=== PATIENT | male | born 1965 | race American Indian/Alaskan Native ===

== ENCOUNTER 2016-10-21 04:25 | Emergency (ER) | payer MEDICARE, OTHER ==
[2016-10-21 04:40] VITALS: BP 119/89
[2016-10-21 05:35] LABS: Blood Urea Nitrogen 3 mg/dL (9-20); Calcium 8.6 mg/dL (8.4-10.2); Carbon Dioxide 27 mmol/L (22-30); Chloride 101.6 mmol/L (98-107); Glucose 272 mg/dL (75-100); Potassium 4.6 mmol/L (3.6-5.0); Sodium 141 mmol/L (137-145)
[2016-10-21 05:40] LABS: Basophils % (Auto) 0.9 % (0.0-1.8); Eosinophils % (Auto) 2.6 % (0.0-4.3); Hematocrit 39.3 % (35.5-45.6); Mean Corpuscular HGB Conc 33 % (32-34); Mean Corpuscular Hemoglobin 29 pg (28-32); Mean Corpuscular Volume 89 fl (84-94); Platelet Count 402 K/mm3 (140-440); Red Blood Count 4.44 M/mm3 (3.65-5.03); Red Cell Distribution Width 15.9 % (13.2-15.2); White Blood Count 5.5 K/mm3 (4.5-11.0)
[2016-10-21 05:50] LABS: Anion Gap 17 mmol/L
== END 2016-10-21 12:28 | disposition left against medical advice (07) ==
LOC: ED 04:25 → EEVIPCON 04:25 → ED 12:28
DX: R45.851 Suicidal ideations (principal); Z53.21 Procedure and treatment not carried out due to patient leaving prior to being seen by health care provider
CPT/HCPCS: 36415; 80048; 85025; G0480; 80320

== ENCOUNTER 2016-10-22 09:19 | Emergency (ER) | payer SELFPAY ==
[2016-10-22 10:05] VITALS: BP 139/98
--- NOTE | 2016-10-22 10:08 | Emergency Department Report ---
Stated Complaint: MH Time Seen by Provider: 10/22/16 10:05 - HPI History of Present Illness: Patient requesting medication refill on prescriptions. He was brought to the ED by Fidencio Magdalene SMITH for mental health evaluation - ROS Review of Systems: all other systems are unremarkable except for documentation in HPI - Exam Physical Exam: Gen: well developed and nourished, NAD Psych: rambling MSE screening note: Focused history and physical exam performed. Due to findings the following was ordered: laboratory studies and Mental Health Evaluation ordered ED Disposition for MSE Condition: Stable
[2016-10-22 10:43] LABS: Basophils % (Auto) 0.3 % (0.0-1.8); Eosinophils % (Auto) 1.5 % (0.0-4.3); Hemoglobin 11.9 gm/dl (11.8-15.2); Mean Corpuscular HGB Conc 33 % (32-34); Mean Corpuscular Hemoglobin 29 pg (28-32); Mean Corpuscular Volume 88 fl (84-94); Platelet Count 332 K/mm3 (140-440); Red Blood Count 4.08 M/mm3 (3.65-5.03); Red Cell Distribution Width 16.4 % (13.2-15.2)
[2016-10-22 11:05] LABS: Alanine Aminotransferase 10 units/L (7-56); Albumin 3.9 g/dL (3.9-5); Albumin/Globulin Ratio 1.2 %; Alkaline Phosphatase 70 units/L (35-129); Anion Gap 15 mmol/L; BUN/Creatinine Ratio 11.25; Bilirubin,Total 0.2 mg/dL (0.1-1.2); Blood Urea Nitrogen 9 mg/dL (9-20); Calcium 9.3 mg/dL (8.4-10.2); Carbon Dioxide 29 mmol/L (22-30); Chloride 103.8 mmol/L (98-107); Glucose 193 mg/dL (75-100); Potassium 4.3 mmol/L (3.6-5.0); Sodium 143 mmol/L (137-145); Total Protein 7.2 g/dL (6.3-8.2)
[2016-10-22 11:31] LABS: Salicylate < 0.3 mg/dL (2.8-20.0); Valproate 102.6 ug/mL (50-100)
--- NOTE | 2016-10-23 19:16 | ED Elopement Review ---
ED Pt Elopement review - Results review Lab results: Laboratory Tests 10/22/16 10/22/16 10/22/16 10:27 10:27 10:27 WBC 8.0 RBC 4.08 Hgb 11.9 Hct 36.0 MCV 88 MCH 29 MCHC 33 RDW 16.4 H Plt Count 332 Lymph % (Auto) 29.5 [place] % (Auto) 8.2 H Eos % (Auto) 1.5 Baso % (Auto) 0.3 Lymph # 2.4 [place]ade # 0.7 Eos # 0.1 Baso # 0.0 Seg Neutrophils % 60.5 Seg Neutrophils # 4.8 Carbon Dioxide 29 BUN 9 Creatinine 0.8 Estimated GFR > 60 BUN/Creatinine Ratio 11.25 Glucose 193 H Calcium 9.3 Total Bilirubin 0.2 AST 14 ALT 10 Alkaline Phosphatase 70 Total Protein 7.2 Albumin 3.9 Albumin/Globulin Ratio 1.2 Salicylates < 0.3 L Acetaminophen Valproic Acid 102.6 H Plasma/Serum Alcohol 10/22/16 10/22/16 10:27 10:27 WBC RBC Hgb Hct MCV MCH MCHC RDW Plt Count Lymph % (Auto) [place] % (Auto) Eos % (Auto) Baso % (Auto) Lymph # Meade # Eos # Baso # Seg Neutrophils % Seg Neutrophils # Carbon Dioxide BUN Creatinine Estimated GFR BUN/Creatinine Ratio Glucose Calcium Total Bilirubin AST ALT Alkaline Phosphatase Total Protein Albumin Albumin/Globulin Ratio Salicylates Acetaminophen < 15.0 Valproic Acid Plasma/Serum Alcohol < 0.01 - Call Back decision Pt Call Back Decision: Call pt to return to ED JUANA (patient here twice in 2 days 1 nursing note states he is suicidal there is no mention of him being suicidal in the screening MSE exam.)
== END 2016-10-22 11:15 | disposition left against medical advice (07) ==
LOC: EEVIPCON 09:19 → ED 09:19
DX: Z76.0 Encounter for issue of repeat prescription (principal); Z53.21 Procedure and treatment not carried out due to patient leaving prior to being seen by health care provider
CPT/HCPCS: 36415; 80053; 80164; 85025; G0480; 80320

== ENCOUNTER 2021-05-10 18:53 | Emergency (ER) | payer MEDICARE ==
[2021-05-10 19:36] LABS: Basophils # (Auto) 0.1 K/mm3 (0.0-0.1); Eosinophils # (Auto) 0.1 K/mm3 (0.0-0.4); Eosinophils % (Auto) 0.7 % (0.0-4.3); Hematocrit 37.9 % (35.5-45.6); Hemoglobin 12.8 gm/dl (11.8-15.2); Lymphocytes # (Auto) 0.9 K/mm3 (1.2-5.4); Lymphocytes % (Auto) 12.2 % (13.4-35.0); Mean Corpuscular HGB Conc 34 % (32-34); Mean Corpuscular Volume 87 fl (84-94); Monocytes # (Auto) 0.5 K/mm3 (0.0-0.8); Monocytes % (Auto) 7.1 % (0.0-7.3); Platelet Count 312 K/mm3 (140-440); Red Blood Count 4.36 M/mm3 (3.65-5.03); Red Cell Distribution Width 16.6 % (13.2-15.2)
[2021-05-10 19:49] LABS: BUN/Creatinine Ratio 20; Blood Urea Nitrogen 16 mg/dL (9-20); Calcium 9.8 mg/dL (8.4-10.2); Hemolysis Index 5
[2021-05-10 20:20] LABS: Amphetamine Screen,Urine Negative; Benzodiazepines Screen,Urine Negative; Cannabinoid Screen,Urine Negative; Cocaine Screen,Urine Negative; Methadone Screen,Urine Negative; Opiate Screen,Urine Negative
--- NOTE | 2021-05-10 20:31 | Emergency Department Report ---
HPI - General Chief Complaint: Psych Time Seen by Provider: 05/10/21 20:10 - HPI HPI: This is a 55-year-old -[place]ib[place] male presents to the emergency department for a mental health evaluation. Initially, through triage, the patient stated that he was feeling suicidal after using crack cocaine and that he has a crack cocaine addiction. The patient also states that he is homeless. However, the patient tells me that "I could call someone right now to come and get me." At the time of my initial examination the patient denies any current suicidal ideations. He admits to a history of schizoaffective disorder, and also appears to have a psychiatric history of bipolar disorder. He admits to noncompliance with psychiatric medications for "a long time." He also has a past medical history of seizures and diabetes. He says that he last used crack cocaine yesterday. He denies any current alcohol use or intoxication. He denies any current physical complaints. ED Past Medical Hx - Past Medical History Hx Diabetes: Yes Hx Seizures: Yes Hx Psychiatric Treatment: Yes Additional medical history: bipolar, schizophrenia - Surgical History Additional Surgical History: nose and wrist surg - Social History Smoking Status: Current Every Day Smoker Substance Use Type: Alcohol, Cocaine, Marijuana - Medications Home Medications: Home Medications Medication Instructions Recorded Confirmed Last Taken Type Acetaminophen [Tylenol] 325 mg PO Q6HR PRN #1 tablet 06/10/13 01/02/14 01/01/[address] [Depakote] 500 mg PO BID 06/10/13 01/02/14 01/01/14 History Omeprazole [Prilosec] 40 mg PO QDAY 06/10/13 01/02/14 01/01/14 History Quetiapine Fumarate [Seroquel XR] 300 mg PO QDAY 06/10/13 01/02/14 01/01/14 History diphenhydrAMINE [Benadryl] 50 mg PO QHS 06/10/13 01/02/14 01/01/14 History metFORMIN [Glucophage] 500 mg PO BID 06/10/13 01/02/14 01/01/14 History ED Review of Systems ROS: Stated complaint: MENTAL HEALTH Other details as noted in HPI Comment: All other systems reviewed and negative Constitutional: denies: chills, fever Eyes: denies: eye pain, vision change ENT: denies: ear pain, throat pain Respiratory: denies: cough, shortness of breath Cardiovascular: denies: chest pain, palpitations Gastrointestinal: denies: abdominal pain, vomiting Genitourinary: denies: dysuria, discharge Musculoskeletal: denies: back pain, arthralgia Skin: denies: rash, lesions Neurological: denies: headache, weakness Psychiatric: denies: auditory hallucinations, visual hallucinations, homicidal thoughts Physical Exam - Physical Exam Vital Signs: Vital Signs 05/10/21 19:07 Temperature 98.7 F Pulse Rate 118 H Respiratory 18 Rate Blood Pressure 117/84 O2 Sat by Pulse 99 Oximetry Physical Exam: GENERAL: The patient is well-developed well-nourished. HENT: Normocephalic. Atraumatic. Patient has moist mucous membranes. EYES: Extraocular motions are intact. NECK: Supple. Trachea is midline. CHEST/LUNGS: Clear to auscultation. There is no respiratory distress noted. HEART/CARDIOVASCULAR: Regular. There is no tachycardia. There is no murmur. ABDOMEN: Abdomen is soft, nontender. Patient has normal bowel sounds. There is no abdominal distention. SKIN: Skin is warm and dry. NEURO: The patient is awake, alert, and oriented. The patient is cooperative. The patient has no focal neurologic deficits. MUSCULOSKELETAL: There is no tenderness or deformity. There is no limitation range of motion. PSYCH: Patient has some pressured speech. ED Course Vital Signs 05/10/21 19:07 Temperature 98.7 F Pulse Rate 118 H Respiratory 18 Rate Blood Pressure 117/84 O2 Sat by Pulse 99 Oximetry ED Medical Decision Making - Lab Data Result diagrams: 05/10/21 19:21 05/10/21 19:21 Lab Results 05/10/21 05/10/21 05/10/21 Range/Units 19:21 19:21 19:21 WBC (4.5-11.0) K/mm3 RBC (3.65-5.03) M/mm3 Hgb (11.8-15.2) gm/dl Hct (35.5-45.6) % MCV (84-94) fl MCH (28-32) pg MCHC (32-34) % RDW (13.2-15.2) % Plt Count (140-440) K/mm3 Lymph % (Auto) (13.4-35.0) % [place] % (Auto) (0.0-7.3) % Eos % (Auto) (0.0-4.3) % Baso % (Auto) (0.0-1.8) % Lymph # (Auto) (1.2-5.4) K/mm3 [place] # (Auto) (0.0-0.8) K/mm3 Eos # (Auto) (0.0-0.4) K/mm3 Baso # (Auto) (0.0-0.1) K/mm3 Seg Neutrophils % (40.0-70.0) % Seg Neutrophils # (1.8-7.7) K/mm3 Sodium 135 L (137-145) mmol/L Potassium 4.6 (3.6-5.0) mmol/L Chloride 97.0 L (98-107) mmol/L Carbon Dioxide 25 (22-30) mmol/L Anion Gap 18 mmol/L BUN 16 (9-20) mg/dL Creatinine 0.8 (0.8-1.3) mg/dL Estimated GFR > 60 ml/min BUN/Creatinine Ratio 20 % Glucose 155 H (75-100) mg/dL Calcium 9.8 (8.4-10.2) mg/dL Urine Color (Yellow) Urine Turbidity (Clear) Urine pH (5.0-7.0) Ur Specific [place] (1.003-1.030) Urine Protein (Negative) mg/dL Urine Glucose (UA) (Negative) mg/dL Urine Ketones (Negative) mg/dL Urine Blood (Negative) Urine Nitrite (Negative) Urine Bilirubin (Negative) Urine Urobilinogen (<2.0) mg/dL Ur Leukocyte Esterase (Negative) Urine WBC (Auto) (0.0-6.0) /HPF Urine RBC (Auto) (0.0-6.0) /HPF Salicylates < 0.3 L (2.8-20.0) mg/dL Urine Opiates Screen Urine Methadone Screen Acetaminophen 5.0 L (10.0-30.0) ug/mL Ur Barbiturates Screen Ur Phencyclidine Scrn Ur Amphetamines Screen U Benzodiazepines Scrn Urine Cocaine Screen U Marijuana (THC) Screen Drugs of Abuse Note Plasma/Serum Alcohol (0-0.07) % 05/10/21 05/10/21 05/10/21 Range/Units 19:21 19:21 Unknown WBC 7.4 (4.5-11.0) K/mm3 RBC 4.36 (3.65-5.03) M/mm3 Hgb 12.8 (11.8-15.2) gm/dl Hct 37.9 (35.5-45.6) % MCV 87 (84-94) fl MCH 30 (28-32) pg MCHC 34 (32-34) % RDW 16.6 H (13.2-15.2) % Plt Count 312 (140-440) K/mm3 Lymph % (Auto) 12.2 L (13.4-35.0) % [place] % (Auto) 7.1 (0.0-7.3) % Eos % (Auto) 0.7 (0.0-4.3) % Baso % (Auto) 1.0 (0.0-1.8) % Lymph # (Auto) 0.9 L (1.2-5.4) K/mm3 [place] # (Auto) 0.5 (0.0-0.8) K/mm3 Eos # (Auto) 0.1 (0.0-0.4) K/mm3 Baso # (Auto) 0.1 (0.0-0.1) K/mm3 Seg Neutrophils % 79.0 H (40.0-70.0) % Seg Neutrophils # 5.8 (1.8-7.7) K/mm3 Sodium (137-145) mmol/L Potassium (3.6-5.0) mmol/L Chloride (98-107) mmol/L Carbon Dioxide (22-30) mmol/L Anion Gap mmol/L BUN (9-20) mg/dL Creatinine (0.8-1.3) mg/dL Estimated GFR ml/min BUN/Creatinine Ratio % Glucose (75-100) mg/dL Calcium (8.4-10.2) mg/dL Urine Color Straw (Yellow) Urine Turbidity Clear (Clear) Urine pH 6.0 (5.0-7.0) Ur Specific [place] 1.013 (1.003-1.030) Urine Protein <15 mg/dl (Negative) mg/dL Urine Glucose (UA) Neg (Negative) mg/dL Urine Ketones Neg (Negative) mg/dL Urine Blood Neg (Negative) Urine Nitrite Neg (Negative) Urine Bilirubin Neg (Negative) Urine Urobilinogen < 2.0 (<2.0) mg/dL Ur Leukocyte Esterase Neg (Negative) Urine WBC (Auto) 1.0 (0.0-6.0) /HPF Urine RBC (Auto) 1.0 (0.0-6.0) /HPF Salicylates (2.8-20.0) mg/dL Urine Opiates Screen Urine Methadone Screen Acetaminophen (10.0-30.0) ug/mL Ur Barbiturates Screen Ur Phencyclidine Scrn Ur Amphetamines Screen U Benzodiazepines Scrn Urine Cocaine Screen U Marijuana (THC) Screen Drugs of Abuse Note Plasma/Serum Alcohol < 0.01 (0-0.07) % 05/10/21 Range/Units Unknown WBC (4.5-11.0) K/mm3 RBC (3.65-5.03) M/mm3 Hgb (11.8-15.2) gm/dl Hct (35.5-45.6) % MCV (84-94) fl MCH (28-32) pg MCHC (32-34) % RDW (13.2-15.2) % Plt Count (140-440) K/mm3 Lymph % (Auto) (13.4-35.0) % [place] % (Auto) (0.0-7.3) % Eos % (Auto) (0.0-4.3) % Baso % (Auto) (0.0-1.8) % Lymph # (Auto) (1.2-5.4) K/mm3 [place] # (Auto) (0.0-0.8) K/mm3 Eos # (Auto) (0.0-0.4) K/mm3 Baso # (Auto) (0.0-0.1) K/mm3 Seg Neutrophils % (40.0-70.0) % Seg Neutrophils # (1.8-7.7) K/mm3 Sodium (137-145) mmol/L Potassium (3.6-5.0) mmol/L Chloride (98-107) mmol/L Carbon Dioxide (22-30) mmol/L Anion Gap mmol/L BUN (9-20) mg/dL Creatinine (0.8-1.3) mg/dL Estimated GFR ml/min BUN/Creatinine Ratio % Glucose (75-100) mg/dL Calcium (8.4-10.2) mg/dL Urine Color (Yellow) Urine Turbidity (Clear) Urine pH (5.0-7.0) Ur Specific [place] (1.003-1.030) Urine Protein (Negative) mg/dL Urine Glucose (UA) (Negative) mg/dL Urine Ketones (Negative) mg/dL Urine Blood (Negative) Urine Nitrite (Negative) Urine Bilirubin (Negative) Urine Urobilinogen (<2.0) mg/dL Ur Leukocyte Esterase (Negative) Urine WBC (Auto) (0.0-6.0) /HPF Urine RBC (Auto) (0.0-6.0) /HPF Salicylates (2.8-20.0) mg/dL Urine Opiates Screen Negative Urine Methadone Screen Negative Acetaminophen (10.0-30.0) ug/mL Ur Barbiturates Screen Negative Ur Phencyclidine Scrn Negative Ur Amphetamines Screen Negative U Benzodiazepines Scrn Negative Urine Cocaine Screen Negative U Marijuana (THC) Screen Negative Drugs of Abuse Note Disclamer Plasma/Serum Alcohol (0-0.07) % - Medical Decision Making Initially the patient presented to triage with a complaint of suicidal ideations after using crack cocaine. However, at the time of my initial examination the patient says that he is no longer suicidal. He denies any homicidal ideations or any hallucinations. Patient's labs have been unremarkable including CBC, metabolic panel, blood alcohol level, urinalysis and UDS. The patient was seen by the psychiatric insurance loss assessor who agrees that the patient does not appear to meet criteria for a 1013 and require inpatient stabilization, as he is not currently suicidal. However, the patient does appear intoxicated and after a discussion with the psychiatric insurance loss assessor, the patient be placed on a 2013 until he is clinically sober and then can be discharged. Outpatient referrals have been provided. Critical Care Time: No Critical care attestation.: If time is entered above; I have spent that time in minutes in the direct care of this critically ill patient, excluding procedure time. ED Disposition Clinical Impression: Crack cocaine use, Depression, Schizoaffective disorder Disposition: DC-01 TO HOME OR SELFCARE Is pt being admited?: No Condition: Stable Instructions: Supporting Someone With Schizoaffective Disorder Additional Instructions: Professional and Agency Contacts To help [facility](24/04) [place] Crisis Line: Suicide Prevention Line: Crisis Text Line: Text START to 171811 Emergency: 911 Outpatient COMMUNITY Behavioral Health Resources: DEJAMESLB: [facility] [address], [place] [address] ELISE: [facility] - [facility] [address] [place] [address] [place]: [facility] - [address] [place] [address] Monday thru Monday - 8am - 5pm MAYELA: [facility] Service Address: [address], [place] [address] [facility] Address: [address] [place] [address] Monday thru Monday- 7am-2pm [facility] Address: [address] [place] [address] Monday thru Monday: 8:30AM-5PM HOMELESS RESOURCES: [facility] NEED HELP? If you are in need of help or know someone who does, please contact us at [email or web address] or call , or come to our offices at [address] [place] [phone], Monday-Monday beginning at 8AM. [facility] M[facility] only Admission at 7am Mon to Mon Address: [address] [place] [address] Client Engagement Center [phone] Regular program admission occurs Monday through Monday at 7:00 am and operates on a first come, first serve basis. Because we cant anticipate program availability in advance and program spots are in high demand, we recommend arriving early. Space fills up fast! Next steps can include: Assignment to a [facility] program bed Connection to and placement in a partner program, or Referral to a partner agency [facility] only Admission at 4:30pm daily Address: [address] [place] [address] [facility] Admission from 8am to 10am Daily No intake until 09/28/20 Address: [address] [id number] In case of an emergency, please contact the following numbers: [place] Crisis and Access Line: Number: Crisis Text Line: (Text START) Number: 643270 Suicide Prevention Line: Number: Emergency Number: 911 SUBSTANCE ABUSE PROGRAMS: [facility]: Location: [place], [place] [facility] Address: [address] [place] [address] [facility]: Address: [address] [facility] [place] [address] [facility]: Address: [address] [place] [address] [facility] Community: Address: [address] [place] [address] [facility] Address: [address] [place] [id number]. Please contact above numbers to attempt placement into free based program. Medicaid Programs: [facility]: Address: [address] [place] [address] [facility]: Address: [address] [place] [address] Referrals: [facility] [Outside] - 3-5 Days PRIMARY CARE, [Primary Care Provider] - 3-5 Days
[2021-05-10 20:38] LABS: Bilirubin,Urine NEG (Negative); Blood,Urine NEG (Negative); Color,Urine Straw (Yellow); Protein,Urine <15 mg/dL mg/dL (Negative); Urobilinogen,Urine < 2.0 mg/dL (<2.0)
--- NOTE | 2021-05-11 08:53 | Consultation ---
History of Present Illness - Reason for Consult Consult date: 05/11/21 Reason for consult: mental health evaluation - History of Present Psychiatric Illness Per Ed Note: This is a 55-year-old -[place] male [facility] health [facility]. Initially, through triage, the patient stated that he was feeling suicidal after using crack cocaine and that he has a crack cocaine addiction. The patient also states that he is homeless. However, the patient tells me that "I could call someone right now to come and get me." At the time of my initial examination the patient denies any current suicidal ideations. He admits to a history of schizoaffective disorder, and also appears to have a psychiatric history of bipolar disorder. He admits to noncompliance with psychiatric medications for "a long time." He also has a past medical history of seizures and diabetes. He says that he last used crack cocaine yesterday. He denies any current alcohol use or intoxication. He denies any current physical complaints. Rudolph Lau is a 55 year old patient with a history Scizoaffective, Bipolar, Cocaine use Disorder who presents to the ED for suicidal ideation. In my interview with the patient, the patient reports that he was recently discharged from a psychiatric inpatient admission, he states he was feeling suicidal yesterday. The patient reports that he gets monthly Invega MORA which he states he already had this month however, he was unable to state the date. The patient reports that he feels good today and would like to be discharged. He denies any current suicidal/homicidal ideation and denies hallucinations. Diagnoses: Scizoaffective, Bipolar, Cocaine use Disorder Suicide attempts or Self-harm behavior:Denies Prior psychiatric hospitalizations: Multiple Substance Abuse history:Crack Cocaine Previous psychiatric medications tried: Invega, Risperidone Outpatient treatment: Denies PAST MEDICAL HISTORY: None reported Family Psychiatric History: None reported or documented SOCIAL HISTORY Marital Status: Single Living Arrangements:Homeless Employment Status: unemployed Access to guns/weapons: Denies Education: 12th grade History of Abuse: None reported Legal History: None reported REVIEW OF SYSTEMS Constitutional: Negative for weight loss ENT: Negative for stridor Respiratory: Negative for cough or hemoptysis All other systems reviewed and are negative MENTAL STATUS EXAMINATION General Appearance and Behavior: Age appropriate, good hygiene, wearing appropriate clothes, cooperative, cooperative Cooperation: Participating/engaged Psychomotor Behavior: normal Mood: "good" Affect and affective range: congruent with stated mood Thought Process: goal directed Thought Content: Not Suicidal Speech: Normal volume, Regular rate and rhythm Suicidal Ideation: Denies Homicidal Ideation: Denies Hallucinations: Denies Delusions: None elicited Impulse Control: impaired Insight and Judgment: limited insight and judgment, Memory: normal Attention: Normal Orientation: Alert, oriented Assessment and Plan (1) Schizoaffective disorder Current Visit: Yes Status: Acute Treatment Plan Sitter: Per primary Medical: Per primary Disposition: Do not recommend acute psychiatric inpatient treatment. The patient understands that if suicidal/homicidal ideas or any endangering thoughts/ behaviors arise, they should seek immediate assistance including but not limited to crisis hotline and emergency room. The patient will follow up with outpatient referrals provided by the mental health merchandising director. Will sign off. Thanks Case staffed with Dr. Landa Medications and Allergies Allergies Allergy/AdvReac Type Severity Reaction Status Date / Time No Known Allergies Allergy Verified 12/18/13 12:11 Home Medications Medication Instructions Recorded Confirmed Last Taken Type Acetaminophen [Tylenol] 325 mg PO Q6HR PRN #1 tablet 06/10/13 01/02/14 01/01/[address] [Depakote] 500 mg PO BID 06/10/13 01/02/14 01/01/14 History Omeprazole [Prilosec] 40 mg PO QDAY 06/10/13 01/02/14 01/01/14 History Quetiapine Fumarate [Seroquel XR] 300 mg PO QDAY 06/10/13 01/02/14 01/01/14 History diphenhydrAMINE [Benadryl] 50 mg PO QHS 06/10/13 01/02/14 01/01/14 History metFORMIN [Glucophage] 500 mg PO BID 06/10/13 01/02/14 01/01/14 History Mental Status Exam - Vital signs Last Vital Signs Temp 98.9 F 05/11/21 04:52 Pulse 98 H 05/11/21 04:52 Resp 18 05/11/21 05:40 BP 111/64 05/11/21 04:52 Pulse Ox 99 05/11/21 07:48 Results Result Diagrams: 05/10/21 19:21 05/10/21 19:21 Abnormal lab results 05/10/21 05/10/21 05/10/21 Range/Units 19:21 19:21 19:21 RDW (13.2-15.2) % Lymph % (Auto) (13.4-35.0) % Lymph # (Auto) (1.2-5.4) K/mm3 Seg Neutrophils % (40.0-70.0) % Sodium 135 L (137-145) mmol/L Chloride 97.0 L (98-107) mmol/L Glucose 155 H (75-100) mg/dL Salicylates < 0.3 L (2.8-20.0) mg/dL Acetaminophen 5.0 L (10.0-30.0) ug/mL 05/10/21 Range/Units 19: RDW 16.6 H (13.2-15.2) % Lymph % (Auto) 12.2 L (13.4-35.0) % Lymph # (Auto) 0.9 L (1.2-5.4) K/mm3 Seg Neutrophils % 79.0 H (40.0-70.0) % Sodium (137-145) mmol/L Chloride (98-107) mmol/L Glucose (75-100) mg/dL Salicylates (2.8-20.0) mg/dL Acetaminophen (10.0-30.0) ug/mL All other labs normal.
[2021-05-11 09:09] VITALS: BP 106/70
== END 2021-05-11 12:30 | disposition home or self-care (01) ==
LOC: ED 18:53 → EEVIPCON 18:53 → ED 05-11 12:30
DX: F32.9 Major depressive disorder, single episode, unspecified (principal); F25.9 Schizoaffective disorder, unspecified; F14.90 Cocaine use, unspecified, uncomplicated; E11.8 Type 2 diabetes mellitus with unspecified complications; R56.9 Unspecified convulsions; Z98.890 Other specified postprocedural states; F17.290 Nicotine dependence, other tobacco product, uncomplicated
CPT/HCPCS: 36415; 80048; 80307; 80320; 81001; 85025; 99284; G0480